=== PATIENT | female | born 1940 | race Caucasian/White ===

== ENCOUNTER 2025-03-22 15:23 | Outpatient (CLI) | payer MEDICARE, SELFPAY | END 2025-03-22 15:24 | disposition home or self-care (01) | LOC: AMB 03-27 11:56 | PROVIDERS: Visit Provider Emergency Medicine | DX: S79.911A Unspecified injury of right hip, initial encounter (principal); W01.0XXA Fall on same level from slipping, tripping and stumbling without subsequent striking against object, initial encounter; Y92.032 Bedroom in apartment as the place of occurrence of the external cause | CPT/HCPCS: A0425; A0427 ==